=== PATIENT | male | born 1965 | race Caucasian/White ===

== ENCOUNTER 2017-02-19 11:10 | Emergency (ER) | payer OTHER ==
[~2017-02-19] VITALS: Ht 170.2 cm; Wt 103.9 kg
[~2017-02-19 11:10] MED LIST: ALBU0.63 NEB; ALBU8.5H6 IH; AMLO10TA4 PO; AMLO5TAB2 PO; AZIT500T PO; BUDE10.2 IH; FLUT9.9S NS; FURO-69 PO; HYDR12.58 PO; LOSA50TA2 PO; MELO15TA23 PO; MULT-245 PO; OMEP20CA5 PO; POTA20TA84 PO; PRED-220 PO; PRED50TA PO; TIOT18CA IH; [UNRECOGNIZED DRUG - CODE] PO
[2017-02-19 11:39] LABS: BASO # 0.1 x10^3/uL (0.0-0.2); BASO % 1 % (0-3); EOS % 2 % (0-3); HEMATOCRIT 49.9 % (39.0-53.0); LYMPH # 2.1 x10^3/uL (1.0-4.8); LYMPH % 20 % (24-48); MEAN CORPUSCULAR HEMOGLOBIN 33 pg (25-35); MEAN CORPUSCULAR HGB CONC 34 g/dL (31-37); MEAN CORPUSCULAR VOLUME 96 fL (79-100); MONO % 10 % (0-9); NEUT % 66 % (31-73); PLATELET COUNT 311 x10^3/uL (140-400); RED BLOOD COUNT 5.19 x10^6/uL (4.30-5.70); RED CELL DISTRIBUTION WIDTH 12.9 % (11.5-14.5); WHITE BLOOD COUNT 10.5 x10^3/uL (4.0-11.0)
[2017-02-19] MEDS ORDERED: IPRATRPIUM/ALBUTEROL 0.5/2.5MG 3 ML NEBU. NEB ONE (11:45)
[2017-02-19] MEDS ORDERED: DEXAMETHASONE SOD PHOS 4 MG/ML VIAL IV ONE (11:45)
[2017-02-19] MEDS ORDERED: ASPIRIN ENTERIC COATED 325 MG TABLET.DR. PO ONE (11:45)
[2017-02-19 11:53] LABS: CALCIUM 9.1 mg/dL (8.5-10.1); CREATININE 1.1 mg/dL (0.7-1.3); POTASSIUM 4.2 mmol/L (3.5-5.1)
--- NOTE | 2017-02-19 11:53 | EKG ---
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
[2017-02-19 11:59] LABS: ALBUMIN 3.8 g/dL (3.4-5.0); ALBUMIN/GLOBULIN RATIO 1.1 (1.0-1.7); MAGNESIUM 2.3 mg/dL (1.8-2.4); TOTAL BILIRUBIN 0.3 mg/dL (0.2-1.0); TOTAL PROTEIN 7.3 g/dL (6.4-8.2)
[2017-02-19 12:11] LABS: PROTHROMBIN TIME PATIENT 12.8 SEC (11.7-14.0)
--- NOTE | 2017-02-19 12:18 | RAD ---
EXAM: Abdomen acute complete. HISTORY: Pain. COMPARISON: None. FINDINGS: A frontal view of the chest and frontal upright and supine views of the abdomen are obtained. There is no infiltrate, effusion or pneumothorax. The heart is normal in size. There is a calcified granuloma within the left mid thorax. There is moderate stool within the proximal colon. There is no abnormally dilated air-filled loop of bowel. There is no free air. IMPRESSION: 1. No acute pulmonary finding. 2. Nonobstructive bowel gas pattern.
[2017-02-19 12:43] VITALS: BP 138/75
--- NOTE | 2017-02-19 12:47 | PHYS DOC ---
Past Medical History Past Medical History: COPD, GERD, High Cholesterol, Hypertension Additional Past Medical Histor: BPH,bronchitis Past Surgical History: Appendectomy Alcohol Use: Rarely Drug Use: None Adult General Chief Complaint Chief Complaint: CHEST PAIN HPI HPI Patient is a 51 year old male presenting to the emergency department for evaluation of chest tightness that he has been experiencing for the past 2-3 days. 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 Patient says that he does have COPD as well as hypertension. Patient says that he had a stress test approximately one year ago that he thinks is normal and he takes an aspirin daily. Patient is not on steroids or antibiotic currently. Distended and constipated and tried eating [employer] to have a bowel movement but that did not help. Review of Systems Review of Systems Constitutional: Denies fever or chills [] Eyes: Denies change in visual acuity, redness, or eye pain [] HENT: + nasal congestion. No sore throat [] Respiratory: + cough, shortness of breath [] Cardiovascular: + CP GI: Denies abdominal pain, nausea, vomiting, bloody stools or diarrhea [] : Denies dysuria or hematuria [] Musculoskeletal: Denies back pain or joint pain [] Integument: Denies rash or skin lesions [] Neurologic: Denies headache, focal weakness or sensory changes [] All other systems were reviewed and found to be within normal limits, except as documented in this note. Current Medications Current Medications Current Medications Medications (Trade) Dose Ordered Sig/[facility] Start Time Stop Time Status Last Admin Dose Admin Albuterol/ Ipratropium (Duoneb) 3 ml 1X ONCE 02/19/17 11:45 02/19/17 11:46 DC 02/19/17 11:43 3 ML Aspirin (Ecotrin) 325 mg 1X ONCE 02/19/17 11:45 02/19/17 11:46 DC 02/19/17 11:56 325 MG Dexamethasone Sodium Phosphate (Decadron) 10 mg 1X ONCE 02/19/17 11:45 02/19/17 11:46 DC 02/19/17 11:57 10 MG Allergies Allergies Allergies Coded Allergies Type Severity Reaction Last Updated Verified codeine Allergy Intermediate Nausea and Vomiting 07/18/15 Yes Physical Exam Physical Exam Constitutional: Well developed, well nourished, no acute distress, non-toxic appearance. [] HENT: Normocephalic, atraumatic, bilateral external ears normal, oropharynx moist, no oral exudates, nose normal. [] Eyes: PERRLA, EOMI, conjunctiva normal, no discharge. [] Neck: Normal range of motion, no tenderness, supple, no stridor. [] Cardiovascular:Heart rate regular rhythm, no murmur [] Lungs & Thorax: Bilateral breath sounds diminished with expiratory wheezing noted Abdomen: Bowel sounds normal, soft, no tenderness, no masses, no pulsatile masses. [] Skin: Warm, dry, no erythema, no rash. [] Back: No tenderness, no CVA tenderness. [] Extremities: No tenderness, no cyanosis, no clubbing, ROM intact, no edema. [] Neurologic: Alert and oriented X 3, normal motor function, normal sensory function, no focal deficits noted. [] Current Patient Data Vital Signs Vital Signs Date Time Temp Pulse Resp B/P (MAP) Pulse Ox O2 Delivery O2 Flow Rate FiO2 02/19/17 11:46 96 Room Air 02/19/17 11:18 98.4 92 18 163/99 (120) 98.4 Lab Values Laboratory Tests Test 02/19/17 11:30 White Blood Count 10.5 x10^3/uL (4.0-11.0) Red Blood Count 5.19 x10^6/uL (4.30-5.70) Hemoglobin 17.0 g/dL (13.0-17.5) Hematocrit 49.9 % (39.0-53.0) Mean Corpuscular Volume 96 fL (79-100) Mean Corpuscular Hemoglobin 33 pg (25-35) Mean Corpuscular Hemoglobin Concent 34 g/dL (31-37) Red Cell Distribution Width 12.9 % (11.5-14.5) Platelet Count 311 x10^3/uL (140-400) Neutrophils (%) (Auto) 66 % (31-73) Lymphocytes (%) (Auto) 20 % (24-48) L Monocytes (%) (Auto) 10 % (0-9) H Eosinophils (%) (Auto) 2 % (0-3) Basophils (%) (Auto) 1 % (0-3) Neutrophils # (Auto) 6.9 x10^3uL (1.8-7.7) Lymphocytes # (Auto) 2.1 x10^3/uL (1.0-4.8) Monocytes # (Auto) 1.1 x10^3/uL (0.0-1.1) Eosinophils # (Auto) 0.2 x10^3/uL (0.0-0.7) Basophils # (Auto) 0.1 x10^3/uL (0.0-0.2) Prothrombin Time 12.8 SEC (11.7-14.0) Prothrombin Time INR 1.0 (0.8-1.1) PTT 31 SEC (24-38) D-Dimer (Vero) 0.41 ug/mlFEU (0.00-0.50) Sodium Level 143 mmol/L (136-145) Potassium Level 4.2 mmol/L (3.5-5.1) Chloride Level 104 mmol/L (98-107) Carbon Dioxide Level 32 mmol/L (21-32) Anion Gap 7 (6-14) Blood Urea Nitrogen 21 mg/dL (8-26) Creatinine 1.1 mg/dL (0.7-1.3) Estimated GFR (Cockcroft-Gault) 70.0 BUN/Creatinine Ratio 19 (6-20) Glucose Level 97 mg/dL (70-99) Calcium Level 9.1 mg/dL (8.5-10.1) Magnesium Level 2.3 mg/dL (1.8-2.4) Total Bilirubin 0.3 mg/dL (0.2-1.0) Aspartate Amino Transferase (AST) 19 U/L (15-37) Alanine Aminotransferase (ALT) 36 U/L (16-63) Alkaline Phosphatase 65 U/L (46-116) Troponin I Quantitative < 0.017 ng/mL (0.000-0.055) HB-Plj-A-Type Natriuretic Peptide 15 pg/mL (0-124) Total Protein 7.3 g/dL (6.4-8.2) Albumin 3.8 g/dL (3.4-5.0) Albumin/Globulin Ratio 1.1 (1.0-1.7) Lipase 74 U/L (73-393) Laboratory Tests 02/19/17 11:30 Laboratory Tests 02/19/17 11:30 EKG EKG Sinus rhythm at 85 beats per minutes with normal axis no obvious ST elevation or depression and normal T waves. Radiology/Procedures Radiology/Procedures EXAM: Abdomen acute complete. HISTORY: Pain. COMPARISON: None. FINDINGS: A frontal view of the chest and frontal upright and supine views of the abdomen are obtained. There is no infiltrate, effusion or pneumothorax. The heart is normal in size. There is a calcified granuloma within the left mid thorax. There is moderate stool within the proximal colon. There is no abnormally dilated air-filled loop of bowel. There is no free air. IMPRESSION: 1. No acute pulmonary finding. 2. Nonobstructive bowel gas pattern. DICTATED and SIGNED BY: VICENTE ARIAS MD DATE: 02/19/171211 Course & Med Decision Making Course & Med Decision Making Patient with chest pain that is somewhat concerning for cardiac etiology so I strongly recommended admission to the patient. Patient refused stating that he rather go home and follow-up as an outpatient. He verbalized understanding of why I wanted to admit him to the hospital and accepted the risks of and disability by leaving against my recommendations. 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 Aware and agreeable with plan and verbalized understanding of the above instructions. Dragon Disclaimer Dragon Disclaimer This electronic medical record was generated, in whole or in part, using a voice recognition dictation system. Departure Departure Impression: Primary Impression: Chest pain Additional Impression: COPD exacerbation Disposition: HOME, SELF-CARE Condition: STABLE Referrals: JOSE FRANCISCO LEDEZMA MD (PCP) DILLON HANNA MD Patient Instructions: Chest Pain (Nonspecific) Additional Instructions: TAKE AN ASPIRIN DAILY, DO NOT EXERT YOURSELF. FOLLOW WITH A DOCTOR IN THE NEXT 2-3 DAYS AND COME BACK TO THE ED WITH ANY NEW OR WORSENING SYMPTOMS. TAKE MIRALAX FOR THE CONSTIPATION AND NASONEX FOR THE CONGESTION. THANK YOU! Problem Qualifiers Primary Impression: Chest pain Chest pain type: unspecified Qualified Codes: R07.9 - Chest pain, unspecified PENNY AGUILAR DO Feb 19, 2017 12:47
== END 2017-02-19 13:36 | disposition home or self-care (01) ==
LOC: ER 11:10
DX: R07.89 Other chest pain (principal); J44.1 Chronic obstructive pulmonary disease with (acute) exacerbation; K21.9 Gastro-esophageal reflux disease without esophagitis; I10 Essential (primary) hypertension; E78.00 Pure hypercholesterolemia, unspecified; N40.0 Benign prostatic hyperplasia without lower urinary tract symptoms; Z90.49 Acquired absence of other specified parts of digestive tract; Z79.82 Long term (current) use of aspirin; Z88.5 Allergy status to narcotic agent
CPT/HCPCS: 36415; 74022; 80053; 83690; 83735; 83880; 84484; 85025; 85379; 85610; 85730; 93005; 94250; 94640; 99285; J1100; J7620